=== PATIENT | male | born 1960 | race Caucasian/White ===

== ENCOUNTER 2022-03-06 01:34 | Day surgery (SDC) | payer BC, OTHER, SELFPAY ==
[2022-02-25 13:20] VITALS: BMI 29.4
--- NOTE | 2022-03-05 13:51 | PM.HPGS ---
History of Present Illness History of Present Illness Consent: Risks, benefits, and alternatives have been discussed and questions answered. Patient agrees to proceed with procedure. Chief complaint: positive cologuard Narrative: Norberto Luna is a 61 year old male referred for colon cancer screening. Review of Systems Review of Systems: All systems reviewed & are unremarkable except as noted in HPI and below PMFSH Social History Social History Smoking packs per day: 1.5 Smoking cigarettes per day: 30.0 Years smoked: 35 Smoking pack-years: 52.50 Smoking status: Current every day smoker Tobacco type: cigarettes Alcohol intake: current Substance use: never Substance use type: does not use Living arrangements: with family Spiritual care concerns: No Meds Home Medications and Allergies Home Medications Medication Instructions Recorded Confirmed Type amlodipine 5 mg tablet 5 mg PO DAILY 02/25/22 02/25/22 History aspirin 81 mg capsule 81 mg PO DAILY 02/25/22 02/25/22 History clopidogrel 75 mg tablet 75 mg PO DAILY 02/25/22 02/25/22 History losartan 25 mg tablet 25 mg PO DAILY 02/25/22 02/25/22 History nitroglycerin 0.4 mg sublingual 0.4 mg sublingual PRN PRN Chest 02/25/22 02/25/22 History tablet Pain rosuvastatin 10 mg tablet 10 mg PO DAILY 02/25/22 02/25/22 History Allergies Allergy/AdvReac Type Severity Reaction Status Date / Time PCN Allergy Intermediate Itching Uncoded 02/25/22 13:21 Exam Const: General: alert Orientation/consciousness: patient oriented x3 Resp: Auscultation: clear to auscultation bilaterally Cardio: Rhythm: regular rhythm GI: GI Palp: Yes Soft to palpation and No Tenderness to palpation present (GI) Neuro: General: patient oriented x3 Assessment and Plan Assessment and plan (1) Colon cancer screening: Code(s): Z12.11 - Encounter for screening for malignant neoplasm of colon Status: Acute Assessment and Plan: Colonoscopy with possible biopsy or polypectomy or cautery or injection of substances.
[2022-03-06 09:22] VITALS: BMI 28.9
[2022-03-06 09:24] VITALS: BP 169/84; PULSE 62; RESP 18; TEMP 36.1; O2SAT 99
[2022-03-06] MEDS: LACTATED RINGERS 1,000 ML 150 ML IV CONT (09:36)
--- NOTE | 2022-03-06 09:49 | WPDANESEPPF ---
Anes - Initial Pre Proc Eval Procedure: Operation Date: 03/06/22 10:30 Proposed Procedures p Colonoscopy - Micheal Wu MD Date/Time: 03/06/22 09:49 Surgeon: Micheal Wu MD Pre Op Diagnosis: positive cologuard Patient Data Age: 61 Gender: M Height: 1.78 m Weight: 91.5 kg Last Vital Signs Temp 97.0 F L 03/06/22 09:24 Pulse 62 03/06/22 09:24 Resp 18 03/06/22 09:24 BP 169/84 H 03/06/22 09:24 Pulse Ox 99 03/06/22 09:24 O2 Del Method Room Air 03/06/22 09:24 Allergies Allergy/AdvReac Type Severity Reaction Status Date / Time PCN Allergy Intermediate Itching Uncoded 02/25/22 13:21 Home Medications Medication Instructions Recorded Confirmed Type amlodipine 5 mg tablet 5 mg PO DAILY 02/25/22 02/25/22 History aspirin 81 mg capsule 81 mg PO DAILY 02/25/22 02/25/22 History clopidogrel 75 mg tablet 75 mg PO DAILY 02/25/22 02/25/22 History losartan 25 mg tablet 25 mg PO DAILY 02/25/22 02/25/22 History nitroglycerin 0.4 mg sublingual 0.4 mg sublingual PRN PRN Chest 02/25/22 02/25/22 History tablet Pain rosuvastatin 10 mg tablet 10 mg PO DAILY 02/25/22 02/25/22 History Patient hx anesthesia problems: none Family hx anesthesia problems: none Results Review: All pre-operative results and documents have been reviewed as part of the pre-operative evaluation. [facility] Social History Social History Smoking packs per day: 1.5 Smoking cigarettes per day: 30.0 Years smoked: 35 Smoking pack-years: 52.50 Smoking status: Current every day smoker Tobacco type: cigarettes Alcohol intake: current Substance use: never Substance use type: does not use Living arrangements: with family Spiritual care concerns: No Anes - Eval Final PreProcedure Day of Procedure 03/06/22 09:49 Patient weight: normal Heart: regular rate and rhythm Lungs: clear to auscultation Airway: Mallampati scale class II Neurological: alert and oriented Last oral intake: >/= 8 hours ASA classification: III Emergent: no Anesthetic plan: proceed Anesthesia type and monitoring: general GIVS and standard monitoring Results Review: All pre-operative results and documents have been reviewed as part of the pre-operative evaluation. Informed Consent: The patient's anesthetic plan and its attendant risks and benefits were discussed with the patient/family/POA. Questions were solicited and answers provided to the satisfaction of the patient/family/POA.
[2022-03-06 10:41] VITALS: BP 122/77; PULSE 61; RESP 20; O2SAT 98
[2022-03-06 10:51] VITALS: BP 135/75; PULSE 52; RESP 20; O2SAT 97
[2022-03-06 11:01] VITALS: BP 155/97; PULSE 56; RESP 20; O2SAT 99
== END 2022-03-06 11:11 | disposition home or self-care (01) ==
PROVIDERS: PCP Internal Medicine; Visit Provider Internal Medicine Gastroenterology
PROC: 0DJD8ZZ Inspection of Lower Intestinal Tract, Via Natural or Artificial Opening Endoscopic (ICD-10-PCS; CPT 45378; principal; 2022-03-06 10:30)
DX: Z12.11 Encounter for screening for malignant neoplasm of colon (principal); R19.5 Other fecal abnormalities; K57.30 Diverticulosis of large intestine without perforation or abscess without bleeding; K64.8 Other hemorrhoids; Z79.82 Long term (current) use of aspirin; F17.210 Nicotine dependence, cigarettes, uncomplicated
CPT/HCPCS: 45378; J2704; J7120